=== PATIENT | female | born 1965 | race Caucasian/White ===

== ENCOUNTER 2022-04-13 06:21 | Day surgery (SDC) | payer OTHER ==
[2022-04-12 10:08] VITALS: BP 158/90
[2022-04-13] VITALS (17 sets, daily range): BP systolic 125–165; BP diastolic 70–92
[~2022-04-13 06:21] MED LIST: CLINDAMYCIN PO; LISI1TAB51 PO
[2022-04-13] MEDS ORDERED: LACTATED RINGERS 1000ML 1,000 ML IV ONE (06:54)
[2022-04-13] MEDS ORDERED: NEOSTIGMINE 5MG/5ML SYR IV ONE (07:15)
[2022-04-13] MEDS ORDERED: ONDANSETRON 4MG INJ ONE ×2 (07:15→09:27)
[2022-04-13] MEDS ORDERED: LIDOCAINE PF 100MG/5ML (2%) SYRINGE 5ML ONE (07:15)
[2022-04-13] MEDS ORDERED: PROPOFOL 10 MG/ML 20ML VIAL IV ONE (07:15)
[2022-04-13] MEDS ORDERED: MIDAZOLAM HCL 1 MG/ML 2ML VIAL ONE (07:15)
[2022-04-13] MEDS ORDERED: GLYCOPYRROLATE 1 MG/5 ML SYRINGE ONE (07:15)
[2022-04-13] MEDS ORDERED: DEXAMETHASONE SOD PHOSPHATE 10MG/ML 1ML VIAL ONE (07:15)
[2022-04-13] MEDS ORDERED: SUCCINYLCHOLINE 200MG/10ML SYR ONE (07:15)
[2022-04-13] MEDS ORDERED: ROCURONIUM 10MG/1ML SYR 10 MG/ML ML ONE (07:16)
[2022-04-13] MEDS ORDERED: FENTANYL CITRATE PF 50 MCG/1 ML 2ML VIAL ONE ×3 (07:16→09:37)
[2022-04-13] MEDS ORDERED: LIDOCAINE 1%-EPI 1:100,000 20 ML VIAL IJ SCH (07:30)
[2022-04-13] MEDS ORDERED: MEPERIDINE-PF 25 MG/ML SYG ONE (09:27)
== END 2022-04-13 10:40 | disposition home or self-care (01) ==
LOC: DAH 06:21
PROVIDERS: ATTEND Otolaryngology
DX: C04.9 Malignant neoplasm of floor of mouth, unspecified (principal); Z20.822 Contact with and (suspected) exposure to COVID-19; I10 Essential (primary) hypertension; J44.9 Chronic obstructive pulmonary disease, unspecified; Z79.899 Other long term (current) drug therapy
CPT/HCPCS: 87426; 81025; 41116; A4663; A4606; J7120; J3010 ×3; J3490 ×2; J0330; J1100; J2710; J2001; J2250; J2704; J2405 ×2; J2175; A4649; A4215; A4223; A4222; A4221

== ENCOUNTER 2022-12-28 13:24 | Emergency (ER) | payer OTHER ==
[~2022-12-28] VITALS: Ht 175.3 cm; Wt 41.7 kg
[~2022-12-28 13:24] MED LIST changes: +CEPHA2505L PEG
[2022-12-28 16:58] LABS: BASOPHILS # (AUTO) 0.03 K/uL (0.00-0.20); BASOPHILS % (AUTO) 0.9 % (0.0-5.0); EOSINOPHILS # (AUTO) 0.03 K/uL (0.00-0.70); EOSINOPHILS % (AUTO) 0.9 % (0.0-8.0); HEMATOCRIT 23.6 % (36-48); IMMATURE GRANULOCYTE ABSOLUTE 0.02 K/uL (0-1); LYMPHOCYTES # (AUTO) 0.2 K/uL (1.0-4.8); LYMPHOCYTES % (AUTO) 5.7 % (21.0-51.0); MEAN CORPUSCULAR HEMOGLOBIN 28.6 pg (27.0-33.0); MEAN CORPUSCULAR HGB CONC 32.2 g/dL (32.0-36.0); MEAN CORPUSCULAR VOLUME 88.7 fL (79-99); MONOCYTES # (AUTO) 0.8 K/uL (0.1-1.0); MONOCYTES % (AUTO) 24.2 % (3.0-13.0); NEUTROPHILS # (AUTO) 2.3 K/uL (1.8-7.7); NEUTROPHILS % (AUTO) 67.7 % (40.0-77.0); PLATELET COUNT (AUTO) 238 K/uL (130-400); RED BLOOD CELL COUNT(AUTO) 2.66 MIL/uL (4.00-5.50); RED CELL DISTRIBUTION WIDTH 13.9 % (11.0-15.5); WHITE BLOOD COUNT (AUTO) 3.4 K/uL (4.8-10.8)
[2022-12-28 17:18] LABS: ALBUMIN 2.2 g/dL (3.5-5.0); BILIRUBIN,TOTAL 0.1 mg/dL (0.2-1.0); CREATININE 0.5 mg/dL (0.5-1.5); TOTAL PROTEIN, SERUM 6.1 g/dL (6.0-8.3)
[2022-12-28 17:55] VITALS: BP 100/65; PULSE 94; RESP 18; O2SAT 97
[2022-12-28] MEDS ORDERED: POTASSIUM CHLORIDE 10% ELIXIR 20 MEQ/15 ML UDCUP PO ONE (18:00)
[2022-12-28] MEDS ORDERED: 0.9%NACL 1000ML 1,000 ML IV ONE (18:00)
== END 2022-12-28 19:22 | disposition home or self-care (01) ==
LOC: EDH 13:24
DX: M79.602 Pain in left arm (principal); M79.89 Other specified soft tissue disorders; E86.0 Dehydration; E87.6 Hypokalemia; I10 Essential (primary) hypertension; Z79.899 Other long term (current) drug therapy; Z98.890 Other specified postprocedural states; Z88.5 Allergy status to narcotic agent; Z85.12 Personal history of malignant neoplasm of trachea
CPT/HCPCS: 99285; 96360; 93971; 71045; 84484; 80053; 85025; 36415; 93005; J7030